=== PATIENT | male | born 1950 | race Caucasian/White ===

== ENCOUNTER → 2017-06-18 | Day surgery (SDC) | payer MEDICARE, BC ==
[~2017-06-18] VITALS: Ht 190.5 cm; Wt 95.5 kg
[~2017-06-18] MED LIST: DICYCLOMINE HCL20 MG PO; TYLENOL325 MG PO
== END ==
LOC: GPOC 06-15 15:00 → GEND 08:19 → GPOC 08:30
PROC: 0DJD8ZZ Inspection of Lower Intestinal Tract, Via Natural or Artificial Opening Endoscopic (ICD-10-PCS; principal; 2017-06-18)
PROC: 0DB68ZX Excision of Stomach, Via Natural or Artificial Opening Endoscopic, Diagnostic (ICD-10-PCS; 2017-06-18)
DX: Z12.11 Encounter for screening for malignant neoplasm of colon (principal); K64.8 Other hemorrhoids; K57.30 Diverticulosis of large intestine without perforation or abscess without bleeding; K55.20 Angiodysplasia of colon without hemorrhage; Z88.0 Allergy status to penicillin; Z90.49 Acquired absence of other specified parts of digestive tract
CPT/HCPCS: J2001; J7030